=== PATIENT | female | born 1985 | race Caucasian/White ===

== ENCOUNTER 2018-10-07 14:59 | Emergency (ER) | payer MEDICAID ==
[2018-10-07 15:46] VITALS: BP 106/71; PULSE 80; RESP 18; TEMP 97.4
--- NOTE | 2018-10-07 20:42 | ED ---
Skin/Abscess/FB HPI - General Chief complaint: Skin/Abscess/Foreign Body Stated complaint: Rash on leg Source: patient Mode of arrival: ambulatory Limitations: no limitations - History of Present Illness Initial comments: 32-year-old female who is 39 weeks with no past medical history presenting today for chief complaint of left lower extremity rash 3 years. Patient states that she has had a rash for the past 3 years, she states that has been worsening for the past year. She describes as a red rash, and was told that this was a contact dermatitis. Patient has been evaluated by dermatology 2 times in the past month, no biopsy has been obtained. She has been tried antifungals, bacitracin as well as topical steroids. She states that none of these have alleviate her symptoms. Patient states that for the past week it feels as though it is burning, she states she can no longer take the rash and presents today for evaluation. Patient denies any fever, chills, night sweats, lower extremity edema, chest pain, shortness of breath, bruising, warmth to palpation of the rash, palpable abscesses. Remainder was negative. Upon arrival patient's vital signs stable patient is afebrile and blood pressure within normal limits. Patient is well-appearing and nontoxic. Patient denies any other areas of rash. - Related Data Allergies Allergy/AdvReac Type Severity Reaction Status Date / Time No Known Allergies Allergy Verified 10/07/18 15:42 Review of Systems ROS Statement: Those systems with pertinent positive or pertinent negative responses have been documented in the HPI. ROS Other: All systems not noted in ROS Statement are negative. Constitutional: Denies: fever, chills, night sweats ENT: Denies: ear pain, throat pain Respiratory: Denies: cough, dyspnea, wheezes, hemoptysis, stridor Cardiovascular: Denies: chest pain, palpitations Gastrointestinal: Denies: abdominal pain, nausea, vomiting, diarrhea, constipation Genitourinary: Denies: urgency, dysuria, frequency Musculoskeletal: Denies: back pain, joint swelling Skin: Reports: rash Neurological: Denies: headache, weakness, numbness, paresthesias, confusion, abnormal gait Past Medical History Past Medical History: No Reported History History of Any Multi-Drug Resistant Organisms: None Reported Past Surgical History: No Surgical Hx Reported Past Psychological History: Anxiety Smoking Status: Never smoker Past Alcohol Use History: None Reported Past Drug Use History: None Reported General Exam - General Exam Comments Initial Comments: General: The patient is awake and alert, in no distress, and does not appear acutely ill. Eye: Pupils are equal, round and reactive to light, extra-ocular movements are intact. No nystagmus. There is normal conjunctiva bilaterally. No signs of icterus. Ears, nose, mouth and throat: There are moist mucous membranes and no oral lesions. Neck: The neck is supple, there is no tenderness or JVD. Cardiovascular: There is a regular rate and rhythm. No murmur, rub or gallop is appreciated. Respiratory: Lungs are clear to auscultation, respirations are non-labored, breath sounds are equal. No wheezes, stridor, rales, or rhonchi. Musculoskeletal: Normal ROM, no tenderness. Strength 5/5. Sensation intact. DP and radial pulses equal bilaterally 2+. Neurological: A&O x 3. CN II-XII intact, There are no obvious motor or sensory deficits. Coordination appears grossly intact. Speech is normal. Skin: Skin is warm and dry. There is an erythematous rash with sharp erythematous defined borders. This is not consistent with, there is some mild scaling. No evidence of purpura or petechiae. No warmth to palpation no evidence of drainage or abscess. It extends from the top of the foot to about an inch below the left knee. Psychiatric: Cooperative, appropriate mood & affect, normal judgment. Limitations: no limitations Course Vital Signs 10/07/18 15:42 Temperature 97.4 F L Pulse Rate 80 Respiratory 18 Rate Blood Pressure 106/71 O2 Sat by Pulse 98 Oximetry Medical Decision Making - Medical Decision Making No systemic signs of infection. Dermatitis does not appear to be consistent with infectious etiology. I feel that there is possibility of autoimmune component. I expressed this concern with patient. Patient states the rash has been ongoing for 3 years. Patient does admit to burning, however she recent started a new steroid treatment as prescribed by dermatology. Patient is following dermatology closely. There is no lower extremity edema, patient's vital signs within normal limits. Patient is afebrile and well-appearing. At this time I feel patient should continue management with dermatology, I recommended biopsy. Patient was evaluated in person by Dr. Long, he agrees the impression and plan. Patient is agreeable to plan. She is instructed to apply her cortisone cream, wrap leg in saran wrap and apply a cold towel to help alleviate the burning in symptoms. Patient is agreeable plan was seen she is ready for discharge. Patient was given new dermatology follow-up with Dr. Dawn is obviously given she is displeased with her current card maker. Patient was discharged in stable condition. Return parameters discussed at length the patient. Disposition Clinical Impression: Rash Disposition: HOME SELF-CARE Condition: Good Instructions: Dermatitis (ED) Additional Instructions: Please use previously prescribed medication as discussed. Please follow-up with dermatology in the next 2-3 days, i recommend biopsy. Please return to emergency room if the symptoms increase or worsen or for any other concerns. Is patient prescribed a controlled substance at d/c from ED?: No Referrals: Austin Dawn MD [STAFF PHYSICIAN] - 1-2 days Time of Disposition: 20:42
== END 2018-10-07 20:51 | disposition home or self-care (01) ==
LOC: EC 14:59
DX: R21 Rash and other nonspecific skin eruption (principal)
CPT/HCPCS: 99282

== ENCOUNTER 2018-10-08 10:51 | Inpatient (IN) | payer MEDICAID, OTHER ==
[2018-10-08] MEDS ORDERED: OXYTOCIN 10 UNIT/ML 1 ML VIAL IM PRN (13:29)
[2018-10-08] MEDS ORDERED: METHYLERGONOVINE 0.2 MG/ML 1 ML AMP IM PRN (13:29)
[2018-10-08] MEDS ORDERED: LIDOCAINE 0.5% (PF) 5 MG/ML (50 ML SDV) SQ PRN (13:29)
[2018-10-08] MEDS ORDERED: TERBUTALINE 1 MG/ML VIAL SQ PRN (13:29)
[2018-10-08] MEDS ORDERED: CARBOPROST TROMETHAMINE 250 MCG/ML 1 ML AMP IM PRN (13:29)
[2018-10-08] MEDS ORDERED: OXYTOCIN 20 UNITS/1000 ML NS 1,000 ML IV SCH (13:30)
[2018-10-08] MEDS: LACTATED RINGERS 1,000 ML IV SCH ×2 (13:41→17:04)
[2018-10-08 14:09] LABS: Basophils % (A) 0 %; Eosinophils # (A) 0.1 k/uL (0-0.7); Eosinophils % (A) 1 %; HGB 12.4 gm/dL (11.4-16.0); Lymphocytes % (A) 18 %; MCH 30.7 pg (25.0-35.0); MCHC 33.4 g/dL (31.0-37.0); Mean Platelet Volume 6.5; Monocytes # (A) 0.3 k/uL (0-1.0); Monocytes % (A) 6 %; Neutrophils % (A) 73 %; Platelet Count 241 k/uL (150-450); RBC 4.02 m/uL (3.80-5.40); RDW 14.2 % (11.5-15.5); WBC 5.5 k/uL (3.8-10.6)
[2018-10-08 14:19] VITALS: BMI 33.0
[2018-10-08] MEDS ORDERED: BUTORPHANOL 1 MG/ML 1 ML VIAL IV PRN (15:34)
--- NOTE | 2018-10-08 16:34 | P.HPOB ---
History of Present Illness H&P Date: 10/08/18 Chief Complaint: Intrauterine at term: SGA versus IUGR Karyn is a 32-year-old at 39 weeks gestation who arrived to my office today for an ultrasound. Ultrasound showed baby to be in the potentially 10th percentile with all measurements lagging behind. A an NST was done and she was planned to be delivered tomorrow. However on the nonstress test following was reactive, she had multiple variable decelerations from a baseline of 140 down into the 90s. Due to this a decision to move forward with an induction today was made. She was a transfer of care to [facility] at 35 weeks. GBS was negative. Blood type is A+. She also showed me her leg today and her left calf and velazquez area have a red raised rash that she says is burning. She relates however that this is been on her leg for at least 2 years or more and symptomatically gets worse and better. It has not been cultured are biopsied she was supposed to see a shake out worker but has not followed through with her follow-up care. We' ll likely plan just to cover that is protection during the delivery process as is unclear what it's etiology is. It is however well away from her vaginal area and should not be an issue from that standpoint. All questions were answered for her prior to and during the induction. Artificial rupture membranes was performed and clear fluid is noted. Pitocin augmentation of labor has been initiated and she plans epidural for analgesia. Past Medical History Past Medical History: No Reported History History of Any Multi-Drug Resistant Organisms: None Reported Past Surgical History: No Surgical Hx Reported Past Psychological History: Anxiety Smoking Status: Never smoker Past Alcohol Use History: None Reported Past Drug Use History: None Reported - Past Family History Mother Family Medical History: No Reported History Medications and Allergies Home Medications Medication Instructions Recorded Confirmed Type Pnv,Calcium 72/Iron/Folic Acid 1 each PO DAILY 10/08/18 10/08/18 History [ Plus Tablet] RX: Citalopram Hydrobromide 20 mg PO DAILY 10/08/18 10/08/18 History [CeleXA] Allergies Allergy/AdvReac Type Severity Reaction Status Date / Time No Known Allergies Allergy Verified 10/08/18 11:06 Exam Osteopathic Statement: *. No significant issues noted on an osteopathic structural exam other than those noted in the History and Physical/Consult. Vital Signs Temp Pulse Resp BP Pulse Ox 10/08/18 12:51 97.8 F 77 18 111/69 97 Intake and Output 10/08/18 10/08/18 10/08/18 06:59 14:59 22:59 Other: # Voids 1 Weight 82.1 kg - OBG Physical Exam Breast: both: normal (no masses) Abdomen: bowel sounds normal, no diffuse tenderness, no bruit present, no guarding noted, no hepatomegaly, no splenomegaly, no mass Vulva: both: normal Vagina: normal moisture, no discharge Cervix: no lesion, no discharge Uterus: normal size, normal contour Adnexa: both: normal Anus/Rectum: normal perianal skin, no rectal mass, no hemorrhoids, heme negative Results Result Diagrams: 10/08/18 13:38
[2018-10-08] MEDS ORDERED: ROPIVACAINE 100 MG, fentaNYL (PF) 200 MCG in SODIUM CHLORIDE 0.9% 76 ML EPIDURAL ONE (18:30)
[2018-10-08] MEDS ORDERED: LANOLIN CREAM 5 GM TUBE TOPICAL PRN (19:15)
[2018-10-08] MEDS ORDERED: ZOLPIDEM 5 MG TAB PO PRN (19:15)
[2018-10-08] MEDS ORDERED: SIMETHICONE 80 MG CHEWABLE PO PRN (19:15)
[2018-10-08] MEDS ORDERED: BENZOCAINE/MENTHOL SPRAY 1 GM/SPRAY AEROSOL TOPICAL PRN (19:15)
[2018-10-08] MEDS ORDERED: WITCH HAZEL 1 EACH MED..PAD TOPICAL PRN (19:15)
[2018-10-08] MEDS ORDERED: diphenhydrAMINE 50 MG/ML 1 ML VIAL IVP PRN (19:15)
[2018-10-08] MEDS ORDERED: BISACODYL 10 MG SUPP RECTAL PRN (19:15)
[2018-10-08] MEDS ORDERED: HYDROCORTISONE 2.5% RECTAL CREAM 30 GM TUBE RECTAL PRN (19:15)
[2018-10-08] MEDS ORDERED: diphenhydrAMINE 25 MG CAP PO PRN (19:15)
--- NOTE | 2018-10-08 19:27 | P.PROBDLV ---
Vaginal Delivery Note - . Vaginal Delivery Note: Normal vaginal delivery viable female Apgars 9 and 9 delivery time is 1858 hrs. Please see dictated H&P per Dr. Cristobal on this patient's admission. Brief summary this is a 32-year-old 3 para 2 female 39 weeks gestation who was initially scheduled for induction tomorrow however was found to have some variable decelerations on nonstress testing today. Patient's been monitored for small for gestational age. This time it was decided to proceed with induction. Patient had artificial rupture membranes at 1 cm dilated for clear fluid. Labor is induced with Pitocin. At approximately 4 cm dilated she does get an epidural for pain control. Thereafter she quickly becomes complete. Patient then pushes approximately 2 times pushes the head to the perineum. Posterior perineum is supported and we have controlled delivery of the infant's head over the intact perineum. Mouth and nares are bulb suctioned. There is no evidence of a nuchal cord. With gentle downward traction we then have delivery of the anterior posterior shoulder and rest this infant's body. She did have a hand presenting with the 's head which is spontaneously reduced. is in laid on the mother's abdomen. The cord was allowed to stop pulsating and then doubly clamped and cut. is then handed off to the nurses in attendance. Placenta spontaneously delivered intact. Inspection of the placenta shows what appears to be perhaps an old fibrotic area. The placenta also seems small therefore sent to pathology. Inspection of perineum shows no laceration and no repairs. and mother stable in delivery room.
[2018-10-08] MEDS: SENNOSIDES-DOCUSATE SODIUM 1 EACH TAB PO SCH (22:19)
[2018-10-08] MEDS: IBUPROFEN 600 MG TAB PO PRN (23:31)
[2018-10-09] MEDS: IBUPROFEN 600 MG TAB PO PRN ×3 (05:12→17:42)
[2018-10-09] MEDS: ACETAMINOPHEN TAB 325 MG TAB PO PRN ×2 (08:00→15:05)
[2018-10-09] MEDS: SENNOSIDES-DOCUSATE SODIUM 1 EACH TAB PO SCH (08:10)
--- NOTE | 2018-10-09 08:56 | P.DS ---
Providers Date of admission: 10/08/18 12:10 Expected date of discharge: 10/09/18 Attending physician: Benjamin Cristobal Primary care physician: Stated None Hospital Course: Patient is doing very well day 1. She is involuting, voiding and tolerating her diet. She voices no complaints. Vital signs are stable and afebrile. Heart regular, lungs clear, extremities without pain. Abdomen is soft uterus is firm and lochia is reported be light. She is requesting discharge home today. Prescription for Motrin was sent to the pharmacy. All the questions were answered for her prior to her discharge and discharge instructions were reviewed. She'll follow up with me in 6 weeks. Patient Condition at Discharge: Good Plan - Discharge Summary New Discharge Prescriptions: No Action Pnv,Calcium 72/Iron/Folic Acid [ Plus Tablet] 1 each PO DAILY Citalopram Hydrobromide [CeleXA] 20 mg PO DAILY Discharge Medication List Citalopram Hydrobromide [CeleXA] 20 mg PO DAILY 10/08/18 [History] Pnv,Calcium 72/Iron/Folic Acid [ Plus Tablet] 1 each PO DAILY 10/08/18 [ History]
[2018-10-09 11:37] VITALS: RESP 18
[2018-10-09 16:37] VITALS: BP 99/63; PULSE 74; TEMP 97.6
== END 2018-10-09 19:15 | disposition home or self-care (01) | DRG 807 ==
LOC: FBPOP 10:51 → 4FBP 12:10
PROVIDERS: ADMIT Obstetrics & Gynecology; ATTEND Obstetrics & Gynecology
PROC: 00HU33Z Insertion of Infusion Device into Spinal Canal, Percutaneous Approach (ICD-10-PCS; principal; 2018-10-08)
PROC: 10E0XZZ Delivery of Products of Conception, External Approach (ICD-10-PCS; 2018-10-08)
PROC: 3E0R3NZ Introduction of Analgesics, Hypnotics, Sedatives into Spinal Canal, Percutaneous Approach (ICD-10-PCS; 2018-10-08)
PROC: 10907ZC Drainage of Amniotic Fluid, Therapeutic from Products of Conception, Via Natural or Artificial Opening (ICD-10-PCS; 2018-10-08)
PROC: 3E0P7VZ Introduction of Hormone into Female Reproductive, Via Natural or Artificial Opening (ICD-10-PCS; 2018-10-08)
DX: O76 Abnormality in fetal heart rate and rhythm complicating labor and delivery (principal); Z37.0 Single live birth; O99.344 Other mental disorders complicating childbirth; F41.9 Anxiety disorder, unspecified; Z3A.39 39 weeks gestation of pregnancy; Z79.899 Other long term (current) drug therapy
CPT/HCPCS: 59025; 85025; 86762; 86850; 86900; 86901; 88307; 99213

== ENCOUNTER 2019-06-14 01:20 | Emergency (ER) | payer OTHER ==
[2019-06-14 01:34] VITALS: TEMP 97.8
[2019-06-14] MEDS ORDERED: IBUPROFEN 600 MG TAB PO STA (02:08)
[2019-06-14] MEDS ORDERED: guaiFENesin-DM 600/30MG 1 EACH TAB.ER.12H PO STA (02:08)
[2019-06-14] MEDS ORDERED: predniSONE 50 MG TAB PO STA (02:08)
--- NOTE | 2019-06-14 02:37 | XR ---
EXAM: XR Chest, 2 Views CLINICAL HISTORY: ITS.REASON XR Reason: Pain TECHNIQUE: Frontal and lateral views of the chest. COMPARISON: None. FINDINGS: Lungs: Unremarkable. No consolidation. Pleural space: Unremarkable. No pneumothorax. Heart: Unremarkable. No cardiomegaly. Mediastinum: Unremarkable. Bones/joints: Unremarkable. IMPRESSION: No acute cardiopulmonary abnormality.
--- NOTE | 2019-06-14 03:05 | ED ---
URI HPI - General Chief Complaint: Upper Respiratory Infection Stated Complaint: congestion Time Seen by Provider: 06/14/19 01:36 Source: patient Mode of arrival: ambulatory - History of Present Illness Initial Comments: 33-year-old female patient presents to the emergency department today for evaluation of cough, nasal congestion, and sore throat for the last 10 days. Patient states that symptoms seemed to be worsening today so she presented here for further evaluation. Patient states she has been taking several [id number] medications including Sudafed, Tylenol Cold and sinus, and Robitussin without relief. Patient denies any fever or chills with her symptoms. States that today she did develop some bilateral ear discomfort. Denies any recent travel or sick contacts. Denies any shortness of breath or wheezing. Patient denies any recent rash, chest pain, abdominal pain, nausea, vomiting, diarrhea, constipation, back pain, numbness, tingling, dizziness, we akness, hematuria, dysuria, urinary urgency, urinary frequency, headache, visual changes, or any other complaints. - Related Data Home Medications Medication Instructions Recorded Confirmed Pnv,Calcium 72/Iron/Folic Acid 1 each PO DAILY 10/08/18 10/08/18 [ Plus Tablet] RX: Citalopram Hydrobromide 20 mg PO DAILY 10/08/18 10/08/18 [CeleXA] Previous Rx's Medication Instructions Recorded Ibuprofen [Motrin] 600 mg PO Q6HR PRN #30 tab 10/09/18 RX: Azithromycin [Zithromax Z-pack] 0 mg PO DIRECTED #6 tab 06/14/19 RX: predniSONE 50 mg PO DAILY #5 tablet 06/14/19 guaiFENesin-DM 600/30MG [Mucinex 1 each PO Q12HR #10 tab.er.12h 06/14/19 Dm] Allergies Allergy/AdvReac Type Severity Reaction Status Date / Time No Known Allergies Allergy Verified 10/08/18 11:06 Review of Systems ROS Statement: Those systems with pertinent positive or pertinent negative responses have been documented in the HPI. ROS Other: All systems not noted in ROS Statement are negative. Past Medical History Past Medical History: No Reported History History of Any Multi-Drug Resistant Organisms: None Reported Past Surgical History: No Surgical Hx Reported Past Psychological History: Anxiety Smoking Status: Never smoker Past Alcohol Use History: None Reported Past Drug Use History: None Reported - Past Family History Mother Family Medical History: No Reported History General Exam General appearance: alert, in no apparent distress, other (Physical well- developed, well-nourished adult female patient in no acute distress. Vital s igns upon presentation are temperature 97.8F, pulse 80, respirations 18, blood pressure 108/74, pulse ox 99% on room air.) Eye exam: Present: normal appearance, PERRL, EOMI. Absent: scleral icterus, conjunctival injection, periorbital swelling ENT exam: Present: mucous membranes moist, TM's normal bilaterally (Pearly with no effusion). Absent: normal exam, normal oropharynx (Pharyngeal erythema. No tonsillar hypertrophy or exudate.) Respiratory exam: Present: normal lung sounds bilaterally. Absent: respiratory distress, wheezes, rales, rhonchi, stridor Cardiovascular Exam: Present: regular rate, normal rhythm, normal heart sounds. Absent: systolic murmur, diastolic murmur, rubs, gallop, clicks Neurological exam: Present: alert, oriented X3, CN II-XII intact Psychiatric exam: Present: normal affect, normal mood Skin exam: Present: warm, dry, intact, normal color. Absent: rash Course Vital Signs 06/14/19 06/14/19 01:30 03:35 Temperature 97.8 F 97.8 F Pulse Rate 80 86 Respiratory 18 16 Rate Blood Pressure 108/74 109/79 O2 Sat by Pulse 99 95 Oximetry Medical Decision Making - Medical Decision Making 33-year-old female patient presented to the emergency department today for evaluation of upper respiratory symptoms including cough, nasal congestion, and sore throat 10 days. Physical examination did reveal pharyngeal erythema with no tonsillar hypertrophy or exudate. Lungs are clear to auscultation with good air movement. Vital signs were within normal ranges, she is afebrile normal oxygen saturation. No lymphadenopathy. Strep screen negative. Two-view x-ray of the chest was obtained and showed no acute abnormalities. I did discuss findings and results with the patient. She is given prescription for azithromycin and steroids due to duration of symptoms. She'll be discharged home to follow-up with her primary care physician for recheck in 1-2 days. Return parameters discussed in detail. She verbalizes understanding and agrees with this plan. - Lab Data Lab Results 08/17/19 Range/Units 02:20 Group A Strep Rapid Negative (Negative) - Radiology Data Radiology results: report reviewed, image reviewed Two-view x-ray of the chest is obtained. Report was reviewed in its entirety. Impression by Dr. Cassidy shows no acute cardiopulmonary abnormality. Disposition Clinical Impression: Upper respiratory infection Disposition: HOME SELF-CARE Condition: Good Instructions (If sedation given, give patient instructions): Pharyngitis (ED), Upper Respiratory Infection (ED) Additional Instructions: Increase fluids. Take medication as directed. Complete antibiotic and steroid prescription in full. Follow up with your primary care physician for recheck in 1-2 days. Return to the emergency department for any new, worsening, or concerning symptoms. Prescriptions: guaiFENesin-DM 600/30MG [Mucinex Dm] 1 each PO Q12HR #10 tab.er.12h RX: predniSONE 50 mg PO DAILY #5 tablet RX: Azithromycin [Zithromax Z-pack] 0 mg PO DIRECTED #6 tab Is patient prescribed a controlled substance at d/c from ED?: No Referrals: Dianna Banegas MD [STAFF PHYSICIAN] - 1-2 days Time of Disposition: 03:05
[2019-06-14 03:38] VITALS: BP 109/79; PULSE 86; RESP 16
== END 2019-06-14 03:35 | disposition home or self-care (01) ==
LOC: EC 01:20
DX: J06.9 Acute upper respiratory infection, unspecified (principal); F41.9 Anxiety disorder, unspecified; Z79.899 Other long term (current) drug therapy
CPT/HCPCS: 87081; 87430; 71046; 99283; J7512